=== PATIENT | female | born 2005 | race Caucasian/White ===

== ENCOUNTER 2024-07-04 12:33 | Emergency (ER) | payer OTHER, SELFPAY ==
[2024-07-04 12:36] VITALS: BP 132/76
[2024-07-04 13:17] LABS: % Basophils 0.6 % (0-2); % Eosinophils 1.7 % (0-6); % Immature Granulocytes 0.1 % (0-0.5); % Lymphocytes 30.9 % (20.5-51.1); % Neutrophils 56.7 % (42.2-75.2); Absolute Eosinophils 0.1 10^3/uL (0-0.7); Absolute Lymphocytes 2.2 10^3/uL (1.2-3.4); Absolute Monocytes 0.7 10^3/uL (0.1-0.6); Hematocrit 38.2 % (37.0-47.0); Hemoglobin 13.1 g/dL (12.0-16.0); Mean Corp Hgb Conc. 34.3 g/dL (33.0-37.0); Mean Corpuscular Hgb 29.6 pg (27.0-31.0); Mean Corpuscular Volume 86.4 fL (81.0-99.0); Mean Platelet Volume 9.1 fL (7.4-10.4); Nucleated Red Blood Cells % 0 %; Platelet Count 273 10^3/uL (130-400); Red Blood Cell Count 4.42 10^6/uL (4.20-5.40); Red Cell Dist. Width 12.4 % (11.5-14.5)
[2024-07-04 13:33] LABS: ALT (SGPT) 24 U/L (0-35); AST (SGOT) 29 U/L (14-36); Albumin 4.8 g/dl (3.5-5.0); Alkaline Phosphatase 76 U/L (38-126); Blood Urea Nitrogen 15 mg/dl (7-17); Calcium 10.1 mg/dl (8.4-10.2); Carbon Dioxide 21 mmol/L (22-30); Chloride 106 mmol/L (98-107); Glucose 92 mg/dl (70-99); HCG, Serum Qualitative Screen Negative; Potassium 4.5 mmol/L (3.5-5.1); Sodium 142 mmol/L (135-145); Total Bilirubin 0.1 mg/dl (0.2-1.3); Total Protein 7.3 g/dl (6.3-8.2); eGFR > 60.00
[2024-07-04 13:52] LABS: Lipase 100 U/L (23-300)
[2024-07-04 15:05] VITALS: BP 131/66; BMI 31.8
[2024-07-04 15:06] VITALS: BP 131/66
--- NOTE | 2024-07-04 15:07 | ED.GENMED ---
History of Present Illness
General
Chief Complaint: Abdominal Pain
Source: patient
Exam Limitations: none
Time Seen by Provider: 07/04/24 14:55
History of Present Illness
History of Present Illness:
18 year old female presents with intermittent epigastric and right upper quadrant abdominal pain over the past 2 to 3 days. She describes it as sharp in nature does not radiate. There was some associated nausea with it today. It is unclear if the
pain gets worse if she eats. No fevers. No normal bowel movements. Denies regular use of NSAIDS, caffeine or alcohol. No known sick contacts. No chest pain or shortness of breath.
Phy Exam
Physical Exam
Physical Exam:
General: Well-appearing female no acute distress
HEENT: Normocephalic sclera anicteric neck is supple heart: Regular rate and rhythm
Lungs: Clear no wheeze
Abd: Soft, tender to epigastric area and RUQ. No costovertebral angle tenderness
Extremities: No cyanosis skin warm no rash
Course
Orders/Labs/Results
Orders:
Orders
07/04/24 12:39
Test Result ONCE
07/04/24 13:04
Complete Blood Count/With Diff Urgent
Comprehensive Metabolic Panel Urgent
HCG, Serum Qualitative Screen Urgent
Lipase Urgent
07/04/24 15:06
US Abdomen Complete/Upper Urgent
Comment:
Reason For Exam: RUQ pain
07/04/24 16:58
Mag Hydrox/Al Hydrox/Simeth [Maalox] 30 ml Phenobarb/Hyoscy/Atropine/Scop [] 10 ml Viscous Lidocaine 2% [Xylocaine Viscous Cup] 10 ml PO NOW
07/04/24 17:10
Mag Hydrox/Al Hydrox/Simeth [Maalox] 30 ml .ROUTE .STK-MED ONE
Phenobarb/Hyoscy/Atropine/Scop [] 10 ml .ROUTE .STK-MED ONE
07/04/24 17:11
Viscous Lidocaine 2% [Xylocaine Viscous Cup] 15 ml .ROUTE .STK-MED ONE
Abnormal Lab Results
07/04/24
13:04
Absolute Monos (auto) 0.7 H 10^3/uL
(0.1-0.6)
Monocytes % 10.0 H %
(1.7-9.3)
Carbon Dioxide 21 L mmol/L
(22-30)
Total Bilirubin 0.1 L mg/dl
(0.2-1.3)
07/04/24 13:04
07/04/24 13:04
Vital Signs
Initial and Last Documented VS:
Initial Vital Signs
Temp Pulse Resp BP Pulse Ox
98.4 F 99 18 132/76 97
07/04/24 12:36 07/04/24 12:36 07/04/24 12:36 07/04/24 12:36 07/04/24 12:36
Last Documented Vital Signs
Temp Pulse Resp BP Pulse Ox
98.4 F 92 18 131/66 98
07/04/24 12:36 07/04/24 15:05 07/04/24 12:36 07/04/24 15:06 07/04/24 15:45
MDM/Problems Addressed
Differential Diagnosis Includes:
Abdominal pain. This is acute. Consider gastritis versus biliary colic risk consultation. Not tender over right lower quadrant. Do not suspect appendicitis. Patient has no urinary symptoms.
Will check labs and ultrasound of abdomen
*Critical Care Note
Total Time (30-74mins, 75-104mins- exclusive of procedures): Not Applicable
Update Note
Update Note:
Ultrasound negative. Suspect possible gastritis. Green grabber given and she feels much better. Recommended antacids at home bland diet stable for
ED Attending Note
-
Portions of this chart may have been created with voice recognition software.� Occasional wrong word or��sound alike� substitutions may have occurred due to the inherent limitations of voice recognition software.
Discharge Plan
Departure
Patient Disposition: Home (Routine Discharge)
Date of Disposition: 07/04/24
Time of Disposition: 18:36
Patient with high blood pressure during this ER visit?: No
Discharge Problem:
Abdominal pain
Referrals:
UNKNOWN - PT DOES,NOT KNOW [Family Provider] -
Activity Restrictions/Additional Instructions:
Use clear liquids. Eat a bland diet. Use antacids like Prilosec [id number]. Return if needed otherwise
Interventions
Interventions:
*Risk Screen - Suicide Last Done: 07/04/24 12:36
*General Assessment Last Done: 07/04/24 12:36
*Neglect/Abuse Screening Last Done: 07/04/24 12:36
ED- Fall Risk Assessment Last Done: 07/04/24 15:05
*ED COVID-19 Vaccine History Last Done: 07/04/24 15:05
WE-Ivhehx-Tzggfhrqct Assessment Last Done: 07/04/24 15:05
Discharge Date and Time
Print Language: TURKISH
[2024-07-04 17:14] VITALS: BP 110/56
[2024-07-04] MEDS: MAALOX 50 PO (17:14)
[2024-07-04 18:00] VITALS: BP 104/59
== END 2024-07-04 18:51 | disposition home or self-care (01) ==
LOC: EMR 12:33
PROVIDERS: Emergency Medicine; EMERGENCY PHYSICIAN Student in an Organized Health Care Education/Training Program
DX: R10.11 Right upper quadrant pain (principal); R11.0 Nausea
CPT/HCPCS: 99284; 76700; 80053; 83690; 84703; 85025